=== PATIENT | male | born 1985 | race Hispanic/Latino ===

== ENCOUNTER → 2023-06-21 | Emergency (ER) | payer SELFPAY ==
[~2023-06-21] MED LIST: DIPHENHYDRAMINE 25 MG TAB/CAP ONE; FAMOTIDINE 20 MG TAB ONE; SMZ./TMP. 800/160 MG TABLET ONE; predniSONE 20 MG TAB ONE
--- NOTE | 2023-06-21 19:42 | EDPHYS ---
Physician Documentation [facility] Name: Jorden Bedoya Age: 38 yrs Sex: Male : 1985 Arrival Date: 06/21/2023 Time: 18:57 Bed 4 Private MD: ED Physician Braulio Jalloh HPI: 06/21 19:33 This 38 yrs old Male presents to ER via Ambulatory with complaints of Rash. [facility] 19:33 The patient's rash thought to be caused by Dermatitis. The rash is located on the [facility] abdomen. The rash can be described as erythematous. Onset: The symptoms/episode began/occurred 5 day(s) ago. Associated signs and symptoms: Pertinent positives: None. Pertinent negatives: burning sensation, Pain. Severity of symptoms: At their worst the symptoms were mild in the emergency department the symptoms are unchanged. Treatment given at home: Benadryl, OTC lotion/cream. The patient has experienced similar episodes in the past, several times. Historical: - Allergies: 19:26 Tamiflu; ha1 - PMHx: 19:26 None; ha1 - Immunization history:: Adult Immunizations up to date. - Social history:: Smoking status: Patient denies any tobacco usage or history of. - Family history:: not pertinent. ROS: 19:33 Constitutional: Negative for fever, chills, and weight loss, Eyes: Negative for injury, priscilla pain, redness, and discharge, ENT: Negative for injury, pain, and discharge, Neck: Negative for injury, pain, and swelling, Cardiovascular: Negative for chest pain, palpitations, and edema, Respiratory: Negative for shortness of breath, cough, wheezing, and pleuritic chest pain, Abdomen/GI: Negative for abdominal pain, nausea, vomiting, diarrhea, and constipation, Back: Negative for injury and pain, : Negative for injury, bleeding, discharge, and swelling, MS/Extremity: Negative for injury and deformity, Neuro: Negative for headache, weakness, numbness, tingling, and seizure, Psych: Negative for depression, anxiety, suicide ideation, homicidal ideation, and hallucinations, Allergy/Immunology: Negative for hives, rash, and allergies, Endocrine: Negative for neck swelling, polydipsia, polyuria, polyphagia, and marked weight changes, Hematologic/Lymphatic: Negative for swollen nodes, abnormal bleeding, and unusual bruising, 19:33 Skin: Positive for cellulitis, erythema, rash, swelling, Exam: 19:33 Constitutional: This is a well developed, well nourished patient who is awake, alert, priscilla and in no acute distress. Head/Face: Normocephalic, atraumatic. Eyes: Pupils equal round and reactive to light, extra-ocular motions intact. Lids and lashes normal. Conjunctiva and sclera are non-icteric and not injected. Cornea within normal limits. Periorbital areas with no swelling, redness, or edema. ENT: Nares patent. No nasal discharge, no septal abnormalities noted. Tympanic membranes are normal and external auditory canals are clear. Oropharynx with no redness, swelling, or masses, exudates, or evidence of obstruction, uvula midline. Mucous membranes moist. Neck: Trachea midline, no thyromegaly or masses palpated, and no cervical lymphadenopathy. Supple, full range of motion without nuchal rigidity, or vertebral point tenderness. No Meningismus. Chest/axilla: Normal chest wall appearance and motion. Nontender with no deformity. No lesions are appreciated. Cardiovascular: Regular rate and rhythm with a normal S1 and S2. No gallops, murmurs, or rubs. Normal PMI, no JVD. No pulse deficits. Respiratory: Lungs have equal breath sounds bilaterally, clear to auscultation and percussion. No rales, rhonchi or wheezes noted. No increased work of breathing, no retractions or nasal flaring. Abdomen/GI: Soft, non-tender, with normal bowel sounds. No distension or tympany. No guarding or rebound. No evidence of tenderness throughout. Back: No spinal tenderness. No costovertebral tenderness. Full range of motion. Male : Normal genitalia with no discharge or lesions. MS/ Extremity: Pulses equal, no cyanosis. Neurovascular intact. Full, normal range of motion. Neuro: Awake and alert, GCS 15, oriented to person, place, time, and situation. Cranial nerves II-XII grossly intact. Motor strength 5/5 in all extremities. Sensory grossly intact. Cerebellar exam normal. Normal gait. Psych: Awake, alert, with orientation to person, place and time. Behavior, mood, and affect are within normal limits. 19:33 Skin: cellulitis, that is mild, induration, that is mild is noted, injury, contact dermatitis, Vital Signs: 19:23 BP 130 / 86; Pulse 95; Resp 19 S; Temp 98.1; Pulse Ox 98% on R/A; Weight 111.13 kg; ha1 Height 5 ft. 5 in. ; 19:23 Body Mass Index 40.77 (111.13 kg, 165.1 cm) ha1 MDM: 19:[address] [facility] 19:38 Differential diagnosis: impetigo. Data reviewed: vital signs, nurses notes. [facility] Consideration of Admission/Observation Escalation of care including admission/observation considered. I considered the following discharge prescriptions or medication management in the emergency department Medications were administered in the Emergency Department. See MAR. Care significantly affected by the following chronic conditions: none. Administered Medications: 19:59 Drug: Trimethoprim-Sulfamethoxazole PO (160 mg-800 mg (DS) 1 tablet PO once Route: PO; vc1 20:00 Follow up: Response: Medication administered at discharge. vc1 20:00 Drug: diphenhydrAMINE PO 50 mg PO once Route: PO; vc1 20:00 Follow up: Response: Medication administered at discharge. vc1 20:00 Drug: predniSONE PO 60 mg PO once Route: PO; vc1 20:00 Follow up: Response: Medication administered at discharge. vc1 20:00 Drug: Famotidine PO 40 mg PO once Route: PO; vc1 20:00 Follow up: Response: Medication administered at discharge. vc1 Disposition Summary: 06/21/23 19:41 Discharge Ordered Notes: Location: Home priscilla Problem: new priscilla Symptoms: have improved priscilla Condition: Stable priscilla Diagnosis - Dermatitis, unspecified priscilla - Allergic contact dermatitis due to plants, except food priscilla - Impetigo priscilla Followup: priscilla - With: Private Physician - When: 2 - 3 days - Reason: Recheck today's complaints, Continuance of care, Re-evaluation by your physician Discharge Instructions: - Discharge Summary Sheet priscilla - Contact Dermatitis priscilla - Poison Reema Dermatitis priscilla - Rash, Adult priscilla - Rash, Adult, [id number] priscilla - Poison Reema Dermatitis, [id number] priscilla - Contact Dermatitis, [id number] priscilla Forms: - Medication Reconciliation Form priscilla - Thank You Letter priscilla - Antibiotic Education priscilla - Prescription Opioid Use priscilla - Patient Portal Instructions priscilla - Leadership Thank You Letter [facility] Prescriptions: - Centany 2 % Topical ointment - apply 1 application TOPICAL route 3 times per day; 30 gram tube; Refills: 0, [facility] Product Selection Permitted - Benadryl 25 mg Oral capsule - take 2 capsule ORAL route every 6 hours As needed; 56 tablet; Refills: 0, [facility] Product Selection Permitted - Pepcid 20 mg Oral tablet - take 1 tablet ORAL route every 12 hours for 21 days; 42 tablet; Refills: 0, [facility] Product Selection Permitted - Bactrim DS 800-160 mg Oral Tablet - take 1 tablet ORAL route every 12 hours for 7 days; 14 tablet; Refills: 0, [facility] Product Selection Permitted - Prednisone 20 mg Oral Tablet - take 2 tablets ORAL route once daily for 5 days; 10 tablet; Refills: 0, Product [facility] Selection Permitted Signatures: Braulio Jalloh MD MD cha Calcote, Vanessa RN RN vc1 Isabelle Rivas RN RN ha1
--- NOTE | 2023-06-21 19:42 | ER ---
Nurse's Notes [facility] Name: Jorden Bedoya Age: 38 yrs Sex: Male : 1985 Arrival Date: 06/21/2023 Time: 18:57 Bed 4 Private MD: Diagnosis: Dermatitis, unspecified;Allergic contact dermatitis due to plants, except food;Impetigo Presentation: 06/21 19:23 Chief complaint: Patient states: I have been dealing with a rash since a week ago I ha1 believe it is poison IV because everything started after doing yard work. Coronavirus screen: Vaccine status: Patient reports receiving the 1st dose of the Covid vaccine. Ebola Screen: No symptoms or risks identified at this time. Initial Sepsis Screen: Does the patient meet any 2 criteria? No. Patient's initial sepsis screen is negative. Does the patient have a suspected source of infection? No. Patient's initial sepsis screen is negative. Risk Assessment: Do you want to hurt yourself or someone else? Patient reports no desire to harm self or others. Onset of symptoms was June 21, 2023. 19:23 Method Of Arrival: Ambulatory ha1 19:23 Acuity: GAIL 4 ha1 Triage Assessment: 19:26 General: Appears comfortable, Behavior is calm, cooperative. Pain: Denies pain. Neuro: ha1 Level of Consciousness is awake, alert, obeys commands, Oriented to person, place, time, situation. Cardiovascular: Patient's skin is warm and dry. Respiratory: Airway is patent Respiratory effort is even, unlabored, Respiratory pattern is regular, symmetrical. Derm: Rash noted that is itchy, red. Historical: - Allergies: 19:26 Tamiflu; ha1 - PMHx: 19:26 None; ha1 - Immunization history:: Adult Immunizations up to date. - Social history:: Smoking status: Patient denies any tobacco usage or history of. - Family history:: not pertinent. Screenin:50 [facility] ED Fall Risk Assessment (Adult) History of falling in the last 3 months, vc1 including since admission No falls in past 3 months (0 pts) Confusion or Disorientation No (0 pts) Intoxicated or Sedated No (0 pts) Impaired Gait No (0 pts) Mobility Assist Device Used No (0 pt) Altered Elimination No (0 pt) Score/Fall Risk Level 0 - 2 = Low Risk Oriented to surroundings, Maintained a safe environment, Educated pt \T\ family on fall prevention, incl call for assistance when getting out of bed. Abuse screen: Denies threats or abuse. Nutritional screening: No deficits noted. Tuberculosis screening: No symptoms or risk factors identified. Vital Signs: 19:23 BP 130 / 86; Pulse 95; Resp 19 S; Temp 98.1; Pulse Ox 98% on R/A; Weight 111.13 kg; ha1 Height 5 ft. 5 in. ; 19:23 Body Mass Index 40.77 (111.13 kg, 165.1 cm) ha1 ED Course: 18:58 Patient arrived in ED. rg4 19:19 Braulio Jalloh MD is Attending Physician. priscilla 19:26 Triage completed. ha1 19:51 Arm band placed on right wrist. vc1 19:51 Patient has correct armband on for positive identification. vc1 20:00 Genet Dia, RN is Primary Nurse. vc1 20:03 No provider procedures requiring assistance completed. IV discontinued, intact, vc1 bleeding controlled, No redness/swelling at site. Pressure dressing applied. 20:04 Provided Education on: finish antibiotic. vc1 Administered Medications: 19:59 Drug: Trimethoprim-Sulfamethoxazole PO (160 mg-800 mg (DS) 1 tablet PO once Route: PO; vc1 20:00 Follow up: Response: Medication administered at discharge. vc1 20:00 Drug: diphenhydrAMINE PO 50 mg PO once Route: PO; vc1 20:00 Follow up: Response: Medication administered at discharge. vc1 20:00 Drug: predniSONE PO 60 mg PO once Route: PO; vc1 20:00 Follow up: Response: Medication administered at discharge. vc1 20:00 Drug: Famotidine PO 40 mg PO once Route: PO; vc1 20:00 Follow up: Response: Medication administered at discharge. vc1 Medication: 19:50 VIS not applicable for this client. vc1 Outcome: 19:41 Discharge ordered by . priscilla 20:03 Discharged to home ambulatory, vc1 20:03 Condition: good 20:03 Discharge instructions given to patient, Instructed on discharge instructions, follow up and referral plans. medication usage, Demonstrated understanding of instructions, follow-up care, medications, Prescriptions given X 5 20:04 Patient left the ED. vc1 Signatures: Braulio Jalloh MD MD cha Garcia, Rubi rg4 Genet Dia, RN RN vc1 Isabelle Rivas, SAMAN RN ha1
[2023-06-21 20:45] VITALS: BP 130/86; TEMP 98.1; O2SAT 98
== END ==
LOC: ER 18:57
DX: L30.9 Dermatitis, unspecified (principal); L01.00 Impetigo, unspecified
CPT/HCPCS: J7512

== ENCOUNTER 2023-12-29 17:46 | Emergency (ER) | payer SELFPAY ==
[2023-12-29] MEDS ORDERED: HYDROCODONE/APAP 7.5/325 MG TAB ONE (17:55)
--- NOTE | 2023-12-29 18:54 | RAD REPORT ---
EXAM DESCRIPTION: RAD - Shoulder Right 2 View - 12/29/2023 6:48 pm CLINICAL HISTORY: Right shoulder pain FINDINGS: No fracture seen Mild widening AC joint could indicate sprain and should be correlated clinically
--- NOTE | 2023-12-29 19:06 | ER ---
Nurse's Notes [facility] Name: Jorden Bedoya Age: 38 yrs Sex: Male : 1985 Arrival Date: 12/29/2023 Time: 17:46 Bed 17 Private MD: Diagnosis: Sprain of right acromioclavicular joint, initial encounter Presentation: 12/28 17:56 Chief complaint: Right shoulder pain x 2 weeks. Reports he was working and his harness hb was digging into his shoulder and it has hurt ever since. Coronavirus screen: At this time, the client does not indicate any symptoms associated with coronavirus-19. Ebola Screen: No symptoms or risks identified at this time. Initial Sepsis Screen: Does the patient meet any 2 criteria? No. Patient's initial sepsis screen is negative. Does the patient have a suspected source of infection? No. Patient's initial sepsis screen is negative. Risk Assessment: Do you want to hurt yourself or someone else? Patient reports no desire to harm self or others. Onset of symptoms was November 2023. 17:56 Method Of Arrival: Ambulatory hb 17:56 Acuity: GAIL 4 hb Triage Assessment: 17:58 General: Appears in no apparent distress. Behavior is calm, cooperative. Pain: Pain hb currently is 6 out of 10 on a pain scale. at worst was 10 out of 10 on a pain scale. Neuro: Level of Consciousness is awake, alert, obeys commands, Oriented to person, place, time, situation. Cardiovascular: Patient's skin is warm and dry. Respiratory: Respiratory effort is even, unlabored, Respiratory pattern is regular, symmetrical. Musculoskeletal: Reports right shoulder pain. Historical: - Allergies: 17:58 Tamiflu; hb - Home Meds: 17:58 None [Active]; hb - PMHx: 17:58 None; hb - PSHx: 17:58 None; hb - Immunization history:: Adult Immunizations up to date. - Infectious Disease History:: Denies. - Social history:: Smoking status: Patient denies any tobacco usage or history of. Screenin:59 [facility] ED Fall Risk Assessment (Adult) History of falling in the last 3 months, mb9 including since admission No falls in past 3 months (0 pts) Confusion or Disorientation No (0 pts) Intoxicated or Sedated No (0 pts) Impaired Gait No (0 pts) Mobility Assist Device Used No (0 pt) Altered Elimination No (0 pt) Score/Fall Risk Level 0 - 2 = Low Risk Oriented to surroundings, Maintained a safe environment, Educated pt \T\ family on fall prevention, incl call for assistance when getting out of bed. Abuse screen: Denies threats or abuse. Nutritional screening: No deficits noted. Tuberculosis screening: No symptoms or risk factors identified. Assessment: 18:00 General: Appears in no apparent distress. Behavior is calm, cooperative. Pain: mb9 Complains of pain in right shoulder Pain does not radiate. Pain currently is 8 out of 10 on a pain scale. Quality of pain is described as throbbing, Pain began 2-3 days ago. Is intermittent. Neuro: Carlos Agitation-Sedation Scale (RASS): 0 - Alert and Calm Level of Consciousness is awake, alert, obeys commands, Oriented to person, place, time, situation, Appropriate for age. Cardiovascular: Patient's skin is warm and dry. Respiratory: Airway is patent Respiratory effort is even, unlabored, Respiratory pattern is regular, symmetrical. GI: No signs and/or symptoms were reported involving the gastrointestinal system. : No signs and/or symptoms were reported regarding the genitourinary system. EENT: No signs and/or symptoms were reported regarding the EENT system. Derm: Skin is pink, warm \T\ dry. Musculoskeletal: Range of motion: limited in right shoulder. Vital Signs: 17:56 BP 152 / 96; Pulse 103; Resp 18; Temp 97.8; Pulse Ox 98% on R/A; Weight 117.93 kg; hb Height 5 ft. 5 in. ; Pain 6/10; 19:17 BP 148 / 82; Pulse 82; Resp 14; Temp 98.2; Pulse Ox 100% ; Pain 4/10; jm12 17:56 Body Mass Index 43.27 (117.93 kg, 165.1 cm) hb 17:56 Pain Scale: Adult hb 19:17 Pain Scale: Adult jm12 ED Course: 17:48 Patient arrived in ED. ec2 17:49 [facility] Lu[facility] Craven [facility] sb4 17:49 Loreto Huerta MD is Attending Physician. sb4 17:58 Triage completed. hb 17:58 Arm band placed on. hb 17:59 Placed in gown. Bed in low position. Call light in reach. Side rails up X 1. Provided mb9 Education on: press call light if needing anything. Client placed on continuous cardiac and pulse oximetry monitoring. NIBP monitoring applied. 18:00 Dulce Gilbert, RN is Primary Nurse. mb9 18:00 No provider procedures requiring assistance completed. mb9 18:49 Shoulder Right (2 View) XRAY In Process Unspecified. EDMS 19:05 Mumtaz Jang MD is Referral Physician. sb4 Administered Medications: 17:59 Drug: Hydrocodone-Acetaminophen PO (7.5 mg-325 mg) 1 tabs PO once Route: PO; mb9 19:05 Follow up: Response: No adverse reaction mb9 Medication: 18:00 VIS not applicable for this client. mb9 Outcome: 19:05 Discharge ordered by . sb4 19:17 Discharged to home ambulatory, jm12 19:17 Condition: stable 19:17 Discharge instructions given to patient, family, Instructed on discharge instructions, follow up and referral plans. medication usage, Demonstrated understanding of instructions, follow-up care, medications, Prescriptions given X 2, 19:18 Patient left the ED. jm12 Signatures: Dispatcher [employer] EDShiela Angela, RN Maria Luz Keating, PA-C PA-C sb4 Dulce Gilbert, RN RN mb9 Moses Lama MD MD ec2 Bernie Yarbrough RN RN jm12
--- NOTE | 2023-12-29 19:06 | EDPHYS ---
Physician Documentation [facility] Name: Jorden Bedoya Age: 38 yrs Sex: Male : 1985 Arrival Date: 12/29/2023 Time: 17:46 Bed 17 Private MD: ED Physician Loreto Huerta HPI: 12/28 17:56 This 38 yrs old Male presents to ER via Unassigned with complaints of Shoulder sb4 Injury. 17:56 The patient or guardian complains of an injury, pain, that is acute. right shoulder. sb4 patient states he injured his right shoulder at work 2 weeks ago, he was wearing a harness and thinks his shoulder moved awkwardly. he has had pain since. he has been trying to rest it and take OTC meds but states the pain is getting worse. he denies any numbness or tingling. Historical: - Allergies: 17:58 Tamiflu; hb - Home Meds: 17:58 None [Active]; hb - PMHx: 17:58 None; hb - PSHx: 17:58 None; hb - Immunization history:: Adult Immunizations up to date. - Infectious Disease History:: Denies. - Social history:: Smoking status: Patient denies any tobacco usage or history of. ROS: 17:56 Constitutional: Negative for fever, chills, and weight loss, sb4 17:56 MS/extremity: Positive for injury or acute deformity, decreased range of motion, pain, of the right shoulder, 17:56 All other systems are negative, Exam: 17:56 Constitutional: This is a well developed, well nourished patient who is awake, alert, sb4 and in no acute distress. Head/Face: Normocephalic, atraumatic. Eyes: Extra-ocular motions intact. Periorbital areas with no swelling, redness, or edema. ENT: Mucous membranes moist. Cardiovascular: Regular rate and rhythm with a normal S1 and S2. Skin: Warm, dry with normal turgor. Normal color with no rashes, no lesions, and no evidence of cellulitis. 17:56 Musculoskeletal/extremity: Circulation is intact in all extremities. Pulses: are normal with no appreciated deficits, Perfusion: the extremity is normally perfused throughout, Joints: the right shoulder displays limited range of motion, painful range of motion, tenderness, right AC joint, Vital Signs: 17:56 BP 152 / 96; Pulse 103; Resp 18; Temp 97.8; Pulse Ox 98% on R/A; Weight 117.93 kg; hb Height 5 ft. 5 in. ; Pain 6/10; 19:17 BP 148 / 82; Pulse 82; Resp 14; Temp 98.2; Pulse Ox 100% ; Pain 4/10; jm12 17:56 Body Mass Index 43.27 (117.93 kg, 165.1 cm) hb 17:56 Pain Scale: Adult hb 19:17 Pain Scale: Adult jm12 MDM: 17:50 Patient medically screened. sb4 19:05 Data reviewed: vital signs, nurses notes, radiologic studies, and as a result, I will sb4 discharge patient. Counseling: I had a detailed discussion with the patient and/or guardian regarding the historical points, exam findings, and any diagnostic results supporting the discharge/admit diagnosis, radiology results, the need for outpatient follow up, a orthopedic surgeon, to return to the emergency department if symptoms worsen or persist or if there are any questions or concerns that arise at home. 08 17:55 Order name: Shoulder Right (2 View) XRAY; Complete Time: 18:55 sb4 12/28 18:56 Order name: Sling; Complete Time: 19:12 sb4 Administered Medications: 17:59 Drug: Hydrocodone-Acetaminophen PO (7.5 mg-325 mg) 1 tabs PO once Route: PO; mb9 19:05 Follow up: Response: No adverse reaction mb9 Disposition Summary: 12/29/23 19:05 Discharge Ordered Notes: Location: Home sb4 Problem: new sb4 Symptoms: have improved sb4 Condition: Stable sb4 Diagnosis - Sprain of right acromioclavicular joint, initial encounter sb4 Followup: sb4 - With: Mumtaz Jang MD - When: As needed - Reason: Further diagnostic work-up, Recheck today's complaints, Re-evaluation by your physician Discharge Instructions: - Discharge Summary Sheet sb4 - Shoulder Sprain sb4 Forms: - Patient Portal Instructions sb4 - Leadership Thank You Letter sb4 Prescriptions: - meloxicam 7.5 mg Oral tablet - take 1 tablet ORAL route daily; 14 tablet; Refills: 0, Product Selection sb4 Permitted - Prednisone 20 mg Oral Tablet - take 2 tablets ORAL route once daily for 5 days; 10 tablet; Refills: 0, Product sb4 Selection Permitted Signatures: Dispatcher [employer] Shiela Cooper, RN Maria Luz Keating PA-C PA-C sb4 Dulce Gilbert RN RN mb9
[2023-12-29 23:16] VITALS: BP 148/82; TEMP 98.2; O2SAT 100
== END 2023-12-29 19:18 | disposition home or self-care (01) ==
LOC: ER 17:46
DX: S43.51XA Sprain of right acromioclavicular joint, initial encounter (principal)
CPT/HCPCS: 99284